=== PATIENT | male | born 1935 | race Caucasian/White ===

== ENCOUNTER 2016-12-20 11:07 | Observation (INO) | payer MEDICARE ==
[~2016-12-20] VITALS: Ht 175.3 cm; Wt 108.3 kg
[2016-12-20] VITALS (7 sets, daily range): BP systolic 141–166; BP diastolic 77–89; PULSE 82–96; RESP 18–20; TEMP 96.8–98; O2SAT 90–95
--- NOTE | 2016-12-20 11:33 | PD ---
HPI Chief Complaint: Altered Mental Status Time Seen by Provider: 11:29 Travel History International Travel<30 days: No Contact w/Intl Traveler<30days: No Traveled to known affect area: No History of Present Illness HPI This is a 81-year-old male who presents to the emergency department with difficulty walking. For about the last year he's been having increasing trouble with his gait. He saw a neurologist about 6 months ago and [place] who did not provide a diagnosis. He is down visiting family and over the past week has gotten increasingly unsteady on his feet. They went to [facility] overnight last night. He was diagnosed with a urinary tract infection and prescribed Valium for restless leg syndrome and difficulty sleeping. His family is unable to get him to walk independently and they're unable to transfer him into the car. They were hopeful to drive back to [place] but he can't stand on his own. The patient is reporting cramping in both legs, constant, moderate severity no associated numbness or weakness. His family has noticed that he seems a little bit more slurred this morning with his speech but they think this might be related to Valium that he received in the other Hospital. [facility] Past Medical History Narrative Medical 2 stents Depression Restless leg syndrome Social History Tobacco Use: No Allergies-Medications (Allergen,Severity, Reaction): Coded Allergies: Iodine (Verified Allergy, Unknown, flush, 12/20/16) Lipitor (Verified Allergy, Unknown, chest pain, 12/20/16) Reported Meds & Prescriptions Reported Meds & Active Scripts Active Reported Aspirin Low Dose (Aspirin) 81 Mg Chew 81 Mg CHEW DAILY Wellbutrin Xl 24 HR (Bupropion HCl) 300 Mg Tab 300 Mg PO DAILY Crestor (Rosuvastatin Calcium) 10 Mg Tab 10 Mg PO M.W.FR Requip (Ropinirole) 5 Mg Tab 5 Mg PO HS Nitrofurantoin Macrocrystal 100 Mg Cap 100 Mg PO BID Diazepam 10 Mg Tab 10 Mg PO TID PRN Review of Systems Except as stated in HPI: all other systems reviewed are Neg Physical Exam Narrative GENERAL: Frail elderly male in no acute distress. SKIN: Warm and dry. HEAD: Atraumatic. Normocephalic. EYES: Pupils equal and round. No injection or drainage. ENT: Moist mucous membranes NECK: Trachea midline. CARDIOVASCULAR: Regular rate and rhythm. No murmur appreciated. RESPIRATORY: Clear to auscultation. Breath sounds equal bilaterally. GASTROINTESTINAL: Abdomen soft, non-tender, nondistended. Incontinent of urine. MUSCULOSKELETAL: No obvious deformities. NEUROLOGICAL: Awake and alert. No obvious cranial nerve deficits. No dysarthria or aphasia. No upper extremity ataxia. 5 out of 5 strength in the bilateral upper extremities. 4+ out of 5 strength in the bilateral lower extremities. Hypoactive reflexes in the lower extremities. No clonus. Shuffling gait. PSYCHIATRIC: Appropriate mood and affect; insight and judgment normal. Data Data Last Documented VS Vital Signs Date Time Temp Pulse Resp B/P Pulse Ox O2 Delivery O2 Flow Rate FiO2 12/20/16 12:37 92 20 166/77 93 Room Air 12/20/16 11:24 97.7 Orders Complete Blood Count With Diff (12/20/16 11:29) Comprehensive Metabolic Panel (12/20/16 11:29) Creatine Kinase (Cpk) (12/20/16 11:29) ^ Insert Iv (12/20/16 11:29) Urinalysis - C+S If Indicated (12/20/16 11:29) CKMB (12/20/16 11:20) CKMB% (12/20/16 11:20) Sodium Chlor 0.9% 1000 Ml Inj (Ns 1000 M (12/20/16 12:45) Haloperidol Inj (Haldol Inj) (12/20/16 13:00) Admit Order (Ed Use Only) (12/20/16 13:08) Labs Laboratory Tests Test 12/20/16 12/20/16 11:20 11:45 White Blood Count 8.6 TH/MM3 Red Blood Count 5.45 MIL/MM3 Hemoglobin 15.8 GM/DL Hematocrit 48.9 % Mean Corpuscular Volume 89.7 FL Mean Corpuscular Hemoglobin 29.0 PG Mean Corpuscular Hemoglobin 32.4 % Concent Red Cell Distribution Width 13.1 % Platelet Count 220 TH/MM3 Mean Platelet Volume 8.4 FL Neutrophils (%) (Auto) 54.9 % Lymphocytes (%) (Auto) 17.9 % Monocytes (%) (Auto) 18.4 % Eosinophils (%) (Auto) 7.9 % Basophils (%) (Auto) 0.9 % Neutrophils # (Auto) 4.7 TH/MM3 Lymphocytes # (Auto) 1.5 TH/MM3 Monocytes # (Auto) 1.6 TH/MM3 Eosinophils # (Auto) 0.7 TH/MM3 Basophils # (Auto) 0.1 TH/MM3 CBC Comment DIFF FINAL Differential Comment Sodium Level 139 MEQ/L Potassium Level 4.4 MEQ/L Chloride Level 103 MEQ/L Carbon Dioxide Level 27.4 MEQ/L Anion Gap 9 MEQ/L Blood Urea Nitrogen 20 MG/DL Creatinine 1.60 MG/DL Estimat Glomerular Filtration 42 ML/MIN Rate Random Glucose 95 MG/DL Calcium Level 8.9 MG/DL Total Bilirubin 0.5 MG/DL Aspartate Amino Transf 32 U/L (AST/SGOT) Alanine Aminotransferase 30 U/L (ALT/SGPT) Alkaline Phosphatase 94 U/L Total Creatine Kinase 929 U/L Creatine Kinase MB 5.8 NG/ML Creatine Kinase MB % 0.6 % Total Protein 7.7 GM/DL Albumin 3.9 GM/DL Urine Collection Type CATH Urine Color YELLOW Urine Turbidity CLEAR Urine pH 5.5 Urine Specific [place] 1.005 Urine Protein NEG mg/dL Urine Glucose (UA) NEG mg/dL Urine Ketones NEG mg/dL Urine Occult Blood SMALL Urine Nitrite NEG Urine Bilirubin NEG Urine Leukocyte Esterase TRACE Urine RBC 0-3 /hpf Urine WBC 0-2 /hpf Urine Squamous Epithelial 0-5 /hpf Cells Microscopic Urinalysis Comment CATH-CULT NOT IND Urine Collection Time 11:45 MDM Medical Decision Making Medical Screen Exam Complete: Yes Emergency Medical Condition: Yes Interpretation(s) Afebrile, tachycardic, hypertensive No leukocytosis Monocytic shift Renal insufficiency CK is 929 Urinalysis: No infection Differential Diagnosis Parkinson's disease, urinary tract infection, dehydration, tumor, restless leg syndrome Narrative Course This is a 81-year-old male who presents to the emergency department with generalized weakness, unable to walk with involuntary movements of the arms and legs feeling very restless. He was placed on a monitor and an IV was established. Labs were obtained which demonstrate dehydration with a CK of 900 and renal insufficiency with a creatinine of 1.6. He was given a liter of IV hydration. Patient is very weak when he stands although he seems confused and continues to try to do so in the emergency department. He is a very high fall risk. Plan for observation for physical therapy evaluation and possible neurology consultation. Diagnosis Primary Impression: Weakness Admitting Information Admitting Physician Requests: Observation Iris Galeano MD Dec 20, 2016 11:33
[2016-12-20 11:37] LABS: AUTOMATED NEUTROPHIL # 4.7 TH/MM3 (1.8-7.7); BASOPHIL # 0.1 TH/MM3 (0-0.2); BASOPHIL % 0.9 % (0.0-2.0); EOSINOPHIL # 0.7 TH/MM3 (0-0.4); EOSINOPHIL % 7.9 % (0.0-4.0); HEMATOCRIT 48.9 % (39.0-51.0); HEMO FLAGS DIFF FINAL; LYMPH % 17.9 % (9.0-44.0); LYMPHOCYTE # 1.5 TH/MM3 (1.0-4.8); MEAN CELL VOLUME 89.7 FL (80.0-100.0); MEAN CORPUSCULAR HGB CONC 32.4 % (32.0-36.0); MONO % 18.4 % (0.0-8.0); NEUT % 54.9 % (16.0-70.0); PLATELET COUNT 220 TH/MM3 (150-450); RED BLOOD COUNT 5.45 MIL/MM3 (4.50-5.90); RED CELL DISTRIBUTION WIDTH 13.1 % (11.6-17.2); WHITE BLOOD COUNT 8.6 TH/MM3 (4.0-11.0)
[2016-12-20] MEDS ORDERED: DIAZ10TA PO (11:47)
[2016-12-20] MEDS ORDERED: REQU5TAB PO (11:47)
[2016-12-20] MEDS ORDERED: NITR1CAP36 PO (11:47)
[2016-12-20] MEDS ORDERED: ROSU10 PO (11:47)
[2016-12-20] MEDS ORDERED: WELLTAB39 PO (11:47)
[2016-12-20] MEDS ORDERED: ROSU20 PO (11:47)
[2016-12-20] MEDS ORDERED: ASPI81CH37 CHEW (11:47)
[2016-12-20 12:21] LABS: CHLORIDE 103 MEQ/L (98-107); POTASSIUM 4.4 MEQ/L (3.5-5.1); SODIUM (NA) 139 MEQ/L (136-145)
[2016-12-20 12:22] LABS: BLOOD, URINE SMALL (NEG); GLUCOSE,URINE NEG (NEG); KETONE, URINE NEG (NEG); NITRITE,URINE NEG (NEG); PH, URINE 5.5 (5.0-8.5)
[2016-12-20 12:23] LABS: METHOD OF COLLECTION CATH; URINE COLOR YELLOW (YELLW/STRAW)
[2016-12-20 12:24] LABS: COMMENT (UR) CATH-CULT NOT IND; CULTURE IF INDICATED CATH CULTURE NOT IND; RBC, URINE 0-3 /hpf (0-3); SQUAMOUS EPITHELIAL CELL URINE 0-5 /hpf (0-5); WBC, URINE 0-2 /hpf (0-5)
[2016-12-20 12:25] LABS: ANION GAP 9 MEQ/L (5-15); BICARBONATE 27.4 MEQ/L (21.0-32.0); BLOOD UREA NITROGEN 20 MG/DL (7-18)
[2016-12-20 12:28] LABS: ALT (GPT) 30 U/L (12-78); AST (GOT) 32 U/L (15-37); GLOMERULAR FILTRATION RATE 42 ML/MIN (>89)
[2016-12-20 12:30] LABS: TOTAL BILIRUBIN ADULT 0.5 MG/DL (0.2-1.0)
[2016-12-20 12:31] LABS: ALKALINE PHOSPHATASE 94 U/L (45-117); CREATINE KINASE 929 U/L (39-308)
[2016-12-20] MEDS ORDERED: SODIUM CHLOR 0.9% 1000 ML INJ 1,000 ML IV ONE (12:45)
[2016-12-20 12:47] LABS: CKMB 5.8 NG/ML (0.5-3.6)
[2016-12-20] MEDS ORDERED: HALOPERIDOL LACTATE 5 MG/ML AMP IV PUSH ONE (13:00)
[2016-12-20] MEDS ORDERED: NALOXONE HCL 0.4 MG/ML AMP IV PRN (13:15)
[2016-12-20] MEDS ORDERED: BISACODYL 10 MG SUPP PR PRN (13:15)
[2016-12-20] MEDS ORDERED: ONDANSETRON HCL 4 MG/2 ML VIAL IVP PRN (13:15)
[2016-12-20] MEDS ORDERED: MAGNESIUM HYDROXIDE SUSP 30 ML CUP PO PRN (13:15)
[2016-12-20] MEDS ORDERED: SODIUM CHLORIDE 0.9% FLUSH 5 ML FLUSH FLUSH PRN (13:15)
[2016-12-20] MEDS ORDERED: ACETAMINOPHEN 325 MG TAB PO PRN (13:15)
[2016-12-20] MEDS: SODIUM CHLOR 0.9% 1000 ML INJ 1,000 ML IV SCH ×2 (13:38→22:45)
--- NOTE | 2016-12-20 15:04 | HHI.HP ---
[facility] Primary [facility] Physician Unknown Admission Diagnosis weakness, dehydration Diagnoses: (1) Rhabdomyolysis Diagnosis: Principal (2) Acute kidney injury Diagnosis: Principal (3) Generalized weakness Diagnosis: Principal (4) Hyperlipidemia Diagnosis: Secondary (5) Coronary artery disease Diagnosis: Secondary Chief Complaint: Inability to ambulate, profound weakness Travel History International Travel<30 Days: No Contact w/Intl Traveler <30 Da: No Traveled to Known Affected Are: No History of Present Illness 81 year-old male with known history of hyperlipidemia, coronary artery disease, possible underlying dementia and Parkinson's. Patient does have a rather extensive recent neurological history with restless leg syndrome, involuntary muscle jerking. Patient is undergone multiple workups up in [place] with CT scans and MRIs, neurological evaluation. At the present time there has been no definitive diagnosis. The patient is down here visiting his sister and he had significant leg jerking in which she could not sleep so they went to the ER at [facility] in which apparently they were diagnosed with urinary tract infection and was given prescription for Macrobid and Valium. The patient did take Valium 10 mg this morning. They're on the way to drive back to [place] where his daughter lives and he has significant leg pain so he was trying to get out of the car. They also indicated that has some slurred speech which they thought was a side effect of the Valium that he took this morning. Patient was unable to ambulate and had profound weakness so they brought the patient to the hospital for evaluation. Patient had workup done which does indicate some rhabdomyolysis, acute kidney injury. The patient is very restless and did not lay in the bed, Try to get out of bed so the ER physician the patient Haldol. A sitter has been ordered. Because the patient is unable to hematuria is recommended the patient be admitted for further evaluation management. Review of Systems Constitutional: DENIES: Diaphoretic episodes, Fatigue, Fever, Weight gain, Weight loss, Chills, Dizziness, Change in appetite, Night Sweats Eyes: DENIES: Blurred vision, Diplopia, Eye inflammation, Eye pain, Vision loss , Double Vision Ears, nose, mouth, throat: DENIES: Vertigo, Nasal discharge, Throat pain, Ear Pain, Running Nose, Sinus Pain Respiratory: DENIES: Apneas, Cough, Snoring, Wheezing, Hemoptysis, Sputum production, Shortness of breath Cardiovascular: DENIES: Chest pain, Palpitations, Syncope, Dyspnea on Exertion , Lower Extremity Edema, Orthopnea Gastrointestinal: DENIES: Abdominal pain, Black stools, Bloody stools, Constipation, Diarrhea, Nausea, Vomiting, Difficulty Swallowing, Anorexia Neurologic: COMPLAINS OF: Abnormal gait, DENIES: Headache, Localized weakness , Paresthesias, Seizures, Speech Problems, Tremor, Poor Balance Psychiatric: COMPLAINS OF: Anxiety, Agitation, DENIES: Confusion, Mood changes , Depression, Hallucinations Past Family Social History Past Medical History Coronary artery disease History myocardial infarction Hyperlipidemia Past Surgical History Cholecystectomy Cardiac catheterization Coronary stenting 2 Neck surgery Back surgery Reported Medications Reported Meds & Active Scripts Active Reported Aspirin Low Dose (Aspirin) 81 Mg Chew 81 Mg CHEW DAILY Wellbutrin Xl 24 HR (Bupropion HCl) 300 Mg Tab 300 Mg PO DAILY Crestor (Rosuvastatin Calcium) 10 Mg Tab 10 Mg PO M.W.FR Requip (Ropinirole) 5 Mg Tab 5 Mg PO HS Nitrofurantoin Macrocrystal 100 Mg Cap 100 Mg PO BID Diazepam 10 Mg Tab 10 Mg PO TID PRN Allergies: Coded Allergies: Iodine (Verified Allergy, Unknown, flush, 12/20/16) Lipitor (Verified Allergy, Unknown, chest pain, 12/20/16) Family History Reviewed is significant for mother having stroke Social History Denies any tobacco, alcohol or illicit drugs Physical Exam Vital Signs Vital Signs Date Time Temp Pulse Resp B/P Pulse Ox O2 Delivery O2 Flow Rate FiO2 12/20/16 12:37 92 20 166/77 93 Room Air 12/20/16 11:28 93 Room Air 12/20/16 11:24 97.7 96 20 151/83 93 Physical Exam GENERAL: Well-developed, well-nourished, in no acute distress. alert and orientated, appears to be very restless HEENT: Head is normocephalic without any lesions or masses noted. Facial features are symmetric. Eyes: Pupils equal round reactive to light. Extraocular muscles are intact. Conjunctivae were clear. Oropharyngeal: Pharynx without any erythema edema. Tongue is midline without deviation. Buccal mucosa is moist without any masses or lesions NECK: Supple without any masses. Trachea midline no deviation. No JVD, no bruits are appreciated CARDIAC: Regular rhythm, regular rate. S1/S2 are heard. No murmurs gallops or rubs. LUNGS: Clear to auscultation bilaterally. No wheeze, rhonchi or rales. No use of accessory muscles on inspiration or expiration. ABDOMEN: Soft, nontender. Nondistended. Bowel sounds heard in all 4 quadrants. No organomegaly or masses. Negative rebound, negative guarding EXTREMITIES: No edema, diminished pulses noted bilateral lower extremity. No cyanosis or clubbing, decreased Refill NEUROLOGY: Mood and affect appear appropriate. Cranial nerves II through XII grossly intact. Muscle strength 5/5 in upper and lower extremities bilaterally. Deep tendon reflexes are 2+ in upper and lower extremities bilaterally. Intermittent leg and arm jerking. Cogwheel muscle movements of the arms Laboratory Laboratory Tests Test 12/20/16 12/20/16 11:20 11:45 White Blood Count 8.6 Red Blood Count 5.45 Hemoglobin 15.8 Hematocrit 48.9 Mean Corpuscular Volume 89.7 Mean Corpuscular Hemoglobin 29.0 Mean Corpuscular Hemoglobin 32.4 Concent Red Cell Distribution Width 13.1 Platelet Count 220 Mean Platelet Volume 8.4 Neutrophils (%) (Auto) 54.9 Lymphocytes (%) (Auto) 17.9 Monocytes (%) (Auto) 18.4 Eosinophils (%) (Auto) 7.9 Basophils (%) (Auto) 0.9 Neutrophils # (Auto) 4.7 Lymphocytes # (Auto) 1.5 Monocytes # (Auto) 1.6 Eosinophils # (Auto) 0.7 Basophils # (Auto) 0.1 CBC Comment DIFF FINAL Differential Comment Erythrocyte Sedimentation Rate 8 Sodium Level 139 Potassium Level 4.4 Chloride Level 103 Carbon Dioxide Level 27.4 Anion Gap 9 Blood Urea Nitrogen 20 Creatinine 1.60 Estimat Glomerular Filtration 42 Rate Random Glucose 95 Calcium Level 8.9 Total Bilirubin 0.5 Aspartate Amino Transf 32 (AST/SGOT) Alanine Aminotransferase 30 (ALT/SGPT) Alkaline Phosphatase 94 Total Creatine Kinase 929 Creatine Kinase MB 5.8 Creatine Kinase MB % 0.6 Total Protein 7.7 Albumin 3.9 Thyroid Stimulating Hormone 1.510 3rd Gen Urine Collection Type CATH Urine Color YELLOW Urine Turbidity CLEAR Urine pH 5.5 Urine Specific [place] 1.005 Urine Protein NEG Urine Glucose (UA) NEG Urine Ketones NEG Urine Occult Blood SMALL Urine Nitrite NEG Urine Bilirubin NEG Urine Leukocyte Esterase TRACE Urine RBC 0-3 Urine WBC 0-2 Urine Squamous Epithelial 0-5 Cells Microscopic Urinalysis Comment CATH-CULT NOT IND Urine Collection Time 11:45 Result Diagram: 12/20/16 1120 12/20/16 1120 Assessment and Plan Assessment and Plan Rhabdomyolysis: Unknown etiology, could be from profound weakness, statin use. Will continue IV fluids, monitor CPK every 6 hours 4. Acute kidney injury: Unknown chronicity of patient's renal functions. Obtaining outside records. Can be secondary to mild dehydration, rhabdomyolysis. Avoid nephrotoxins, continue IV fluids, continue monitor monitor BMP Profound weakness with inability to ambulate, ataxia, slurred speech: Could be secondary to above, or medication effect that was given at [facility]. However we'll rule out acute intracranial abnormality with MRI of the brain. Patient did have diminished pulses also noted in bilateral lower extremities, will do RGEG studies. Obtain outside records for full review. Will get physical therapy evaluation. Possible some underlying dementia, Parkinson's. Patient is undergoing outpatient workup in [place] with multiple MRIs in which they do not have a diagnosis this time. They were notified that they need to have neurology follow-up either in [place] or in [place] when they return. Possible urinary tract infection: Patient has started taking antibiotics this time. Which could have sterilize his urine. Patient's urinalysis here was unremarkable. Will start Ceftin 250 mg twice daily. Hyperlipidemia, coronary artery disease: Holding statin at this time due to rhabdomyolysis. Continue aspirin DVT prevention: Sequential compression devices, Written by Marcel Stratton PA-C, acting as scribe for Dr. Smith on 12/20/16 at 1600. The documentation accurately reflects the work and decisions performed face-to- face by Dr. Smith on 12/20/16 at 1600. Problem Qualifiers (1) Hyperlipidemia: Qualified Code: E78.5 - Hyperlipidemia, unspecified hyperlipidemia type (2) Coronary artery disease: Qualified Code: I25.10 - Coronary artery disease, angina presence unspecified, unspecified vessel or lesion type, unspecified whether [place] or transplanted heart Marcel Stratton Dec 20, 2016 15:04
[2016-12-20] MEDS ORDERED: PILL SPLITTER OTHER PRN (16:45)
[2016-12-20] MEDS: CEFUROXIME AXETIL 250 MG TAB PO SCH (19:56)
[2016-12-20] MEDS: SODIUM CHLORIDE 0.9% FLUSH 5 ML FLUSH FLUSH SCH (19:57)
[2016-12-20] MEDS: buPROPion HCL 150 MG SUSTAINED RELEASE TAB PO SCH (19:57)
[2016-12-21 00:32] LABS: CKMB 3.8 NG/ML (0.5-3.6)
[2016-12-21 00:38] VITALS: BP 146/80; PULSE 82; RESP 16; TEMP 97.9; O2SAT 91
[2016-12-21 04:12] VITALS: BP 148/82; PULSE 80; RESP 16; TEMP 98.1; O2SAT 93
[2016-12-21 06:09] LABS: AUTOMATED NEUTROPHIL # 3.5 TH/MM3 (1.8-7.7); BASOPHIL # 0.1 TH/MM3 (0-0.2); BASOPHIL % 0.9 % (0.0-2.0); EOSINOPHIL # 0.6 TH/MM3 (0-0.4); EOSINOPHIL % 9.3 % (0.0-4.0); HEMATOCRIT 43.1 % (39.0-51.0); HEMO FLAGS DIFF FINAL; LYMPH % 22.4 % (9.0-44.0); LYMPHOCYTE # 1.5 TH/MM3 (1.0-4.8); MEAN CELL VOLUME 88.9 FL (80.0-100.0); MEAN CORPUSCULAR HEMOGLOBIN 29.4 PG (27.0-34.0); MONO % 17.8 % (0.0-8.0); NEUT % 49.6 % (16.0-70.0); PLATELET COUNT 189 TH/MM3 (150-450); RED BLOOD COUNT 4.85 MIL/MM3 (4.50-5.90); RED CELL DISTRIBUTION WIDTH 12.9 % (11.6-17.2); WHITE BLOOD COUNT 6.9 TH/MM3 (4.0-11.0)
[2016-12-21 06:26] LABS: POTASSIUM 4.4 MEQ/L (3.5-5.1)
[2016-12-21 06:29] LABS: BICARBONATE 28.5 MEQ/L (21.0-32.0)
[2016-12-21 08:00] VITALS: BP 139/81; PULSE 75; PULSE 76; RESP 18; TEMP 97.2; O2SAT 94
[2016-12-21] MEDS: CEFUROXIME AXETIL 250 MG TAB PO SCH (08:29)
[2016-12-21] MEDS: buPROPion HCL 150 MG SUSTAINED RELEASE TAB PO SCH (08:29)
[2016-12-21] MEDS: SODIUM CHLOR 0.9% 1000 ML INJ 1,000 ML IV SCH (08:29)
[2016-12-21] MEDS: SODIUM CHLORIDE 0.9% FLUSH 5 ML FLUSH FLUSH SCH (08:30)
[2016-12-21] MEDS ORDERED: ASPIRIN 81 MG CHEW TAB CHEW SCH (09:00)
--- NOTE | 2016-12-21 10:05 | RADHPO ---
EXAM DATE/TIME: 12/21/2016 09:52 [facility] COMPARISON: No previous studies available for comparison. INDICATIONS : Slurred speech. Ataxia. MEDICAL HISTORY : Hypertension. Hypercholesterolemia. SURGICAL HISTORY : Cholecystectomy. Appendectomy. Fusion, cervical. ENCOUNTER: Initial ACUITY: 1 day PAIN SCORE: 0/10 LOCATION: cranial TECHNIQUE: Multiplanar, multisequence MRI of the brain was performed without contrast. FINDINGS: CEREBRUM: There is mild cerebral atrophy. Ventricles are normal in size. There are normal flow-voids in the laverne or intracranial vessels on the T2 sequence. No evidence of midline shift, mass lesion, hemorrhage or acute infarction. No extraaxial fluid collections are seen. The pituitary gland and suprasellar ci santillan are normal in configuration. WHITE MATTER: There is moderate to severe periventricular and subcortical white matter signal change. None of these areas are associated with restricted diffusion. POSTERIOR FOSSA: The cerebellum and brainstem demonstrate no acute finding. The 4th ventricle is midline. The cerebel lopontine angle is unremarkable. The cerebellar tonsils are normal in position. DIFFUSION IMAGING: No focal areas of restricted diffusion are seen. No evidence of acute infarction. EXTRACRANIAL: There is a T2 hyperintense lesion in the anterior aspect of the left parotid gland measuring 14 mm. O therwise, the visualized portions of the orbits and paranasal sinuses are unremarkable. CONCLUSION: 1. No acute intracranial abnormality is identified. Chronic changes include generalized cerebral atro phy and moderate to severe periventricular white matter change characteristic of chronic microvascula r ischemia. 2. There is a 14 mm cyst versus lymph node in the anterior aspect of the left parotid gland. Jose Antonio Spears MD on December 21, 2016 at 9:59 Board Certified Radiologist. This report was verified electronically.
--- NOTE | 2016-12-21 10:30 | HHI.PR ---
Subjective Remarks Patient seen and examined today with Dr. Smith. Patient denies any new complaints. Patient more alert today. Patient states that he feels much stronger and wants to leave the hospital and go to [place]. Patient states that he slept well last night without any restless leg syndrome or any leg pain. Objective Vitals Vital Signs Date Time Temp Pulse Resp B/P Pulse Ox O2 Delivery O2 Flow Rate FiO2 12/21/16 04:12 98.1 80 16 148/82 93 12/21/16 00:38 97.9 82 16 146/80 91 12/20/16 21:00 85 12/20/16 20:47 98.0 85 18 150/85 90 12/20/16 17:49 82 12/20/16 16:30 96.8 83 20 141/81 93 12/20/16 15:43 88 20 144/89 95 Room Air 12/20/16 12:37 92 20 166/77 93 Room Air 12/20/16 11:28 93 Room Air 12/20/16 11:24 97.7 96 20 151/83 93 I/O 12/20/16 12/20/16 12/20/16 12/21/16 12/21/16 12/21/16 07:00 15:00 23:00 07:00 15:00 23:00 Intake Total 1120 ml 1100 ml Output Total 400 ml Balance 720 ml 1100 ml Intake Oral 120 ml IV Total 1000 ml 1100 ml Output Urine Total 400 ml # Voids 3 Result Diagram: 12/21/16 0536 12/21/16 0536 Imaging Last Impressions Brain MRI 12/21/16 0000 Signed Impressions: Service Date/Time: Wednesday, December 21, 2016 09:52 - CONCLUSION: 1. No acute intracranial abnormality is identified. Chronic changes include generalized cerebral atrophy and moderate to severe periventricular white matter change characteristic of chronic microvascular ischemia. 2. There is a 14 mm cyst versus lymph node in the anterior aspect of the left parotid gland. Jose Antonio Spears MD Objective Remarks GENERAL: Well-developed, well-nourished, in no acute distress. alert and orientated, appears to be very restless HEENT: Head is normocephalic without any lesions or masses noted. Facial features are symmetric. Eyes: Extraocular muscles are intact. Conjunctivae were clear. NECK: Supple without any masses. Trachea midline no deviation. No JVD, CARDIAC: Regular rhythm, regular rate. S1/S2 are heard. No murmurs gallops or rubs. LUNGS: Clear to auscultation bilaterally. No wheeze, rhonchi or rales. No use of accessory muscles on inspiration or expiration. ABDOMEN: Soft, nontender. Nondistended. Bowel sounds heard in all 4 quadrants. No organomegaly or masses. Negative rebound, negative guarding EXTREMITIES: No edema, diminished pulses noted bilateral lower extremity. No cyanosis or clubbing, decreased Refill NEUROLOGY: Mood and affect appear appropriate. Cranial nerves II through XII grossly intact. Moving all extremities, speech is clear. No recurrent lower extremity jerking. Cogwheel muscle movements of arms Urinary Catheter: No Vascular Central Line Catheter: No A/P Assessment and Plan Rhabdomyolysis: Unknown etiology, could be from profound weakness, statin use. IV fluids were continued. CPK was monitored with improvement. Statin was held Acute kidney injury, mild improvement: Unknown chronicity of patient's renal functions. Obtaining outside records, have not received records from [facility]. Can be secondary to mild dehydration, rhabdomyolysis. Avoid nephrotoxins, continue IV fluids, continue monitor monitor BMP Profound weakness with inability to ambulate, ataxia, slurred speech: Could be secondary to above, or medication effect that was given at [facility]. MRI of the brain was performed which did not indicate any acute abnormality. Patient did have diminished pulses also noted in bilateral lower extremities, ordered GREG studies however these will not likely be done in time today, therefore I recommended to the patient and his that he follow-up with his primary care physician for evaluation for peripheral vascular disease given his history of leg cramps. Awaiting outside records for full review. Awaiting physical therapy evaluation. Possible some underlying dementia, Parkinson's. Patient is undergoing outpatient workup in [place] with multiple MRIs in which they do not have a diagnosis this time. They were notified that they need to have neurology follow-up either in [place] or in [place] when they return. Possible urinary tract infection: Patient has started taking antibiotics this time. Which could have sterilize his urine. Patient's urinalysis here was unremarkable. Continue Ceftin 250 mg twice daily. Hyperlipidemia, coronary artery disease: Holding statin at this time due to rhabdomyolysis. Continue aspirin DVT prevention: Sequential compression devices, Written by Marcel Stratton PA-C, acting as scribe for Dr. Smith on 12/21/16 at 1224. The documentation accurately reflects the work and decisions performed face-to- face by Dr. Smith on 12/21/16 at 1224. Discharge Planning Discharge home in stable condition Activity: Ad starr. Diet: Healthy heart diet Medications per medication reconciliation Follow-up primary medical doctor in one week Marcel Stratton Dec 21, 2016 10:30 Alina Smith MD Dec 21, 2016 14:40
[2016-12-21] MEDS ORDERED: CEFT250T8 PO (10:31)
--- NOTE | 2016-12-21 10:32 | HHI.DCPOC ---
Discharge Care Plan Diagnosis: (1) Weakness (2) Rhabdomyolysis (3) Acute kidney injury Goals to Promote Your Health * To prevent worsening of your condition and complications * To maintain your health at the optimal level Directions to Meet Your Goals Take your medications as prescribed Follow your dietary instruction Follow activity as directed Keep your appointments as scheduled Take your immunizations and boosters as scheduled If your symptoms worsen call your PCP, if no PCP go to Urgent Care Center or Emergency Room Smoking is Dangerous to Your Health. Avoid second hand smoke Call the 24-hour hour crisis hotline for domestic abuse at Marcel Stratton Dec 21, 2016 10:31
[2016-12-21 12:00] VITALS: BP 146/81; PULSE 78; RESP 18; TEMP 96.8; O2SAT 97
[2016-12-22] MEDS ORDERED: ROSUVASTATIN 10 MG PO SCH (09:00)
== END 2016-12-21 17:22 | disposition home or self-care (01) ==
LOC: PHED 11:07 → PHEDA 13:09 → PH3B 16:06
PROVIDERS: ADMIT Family Medicine; ATTEND Family Medicine
DX: R53.1 Weakness (principal); M62.82 Rhabdomyolysis; N17.9 Acute kidney failure, unspecified; E86.0 Dehydration; E78.5 Hyperlipidemia, unspecified; I25.10 Atherosclerotic heart disease of native coronary artery without angina pectoris; I25.2 Old myocardial infarction; R47.81 Slurred speech; R27.0 Ataxia, unspecified; N39.0 Urinary tract infection, site not specified; Z95.5 Presence of coronary angioplasty implant and graft
CPT/HCPCS: 70551; 80048; 80053; 81001; 82550; 82552; 82607; 82746; 84443; 85025; 85652; 96374; 97162; 99285; G0378; G8987; G8988; J1630; J7030